=== PATIENT | male | born 1960 | race Caucasian/White ===

== ENCOUNTER 2022-11-14 00:27 | Day surgery (SDC) | payer OTHER, SELFPAY ==
[2022-11-03 11:30] VITALS: BMI 29.0
[2022-11-14 07:06] VITALS: BP 135/80; PULSE 63; RESP 20; TEMP 36.6; O2SAT 98; BMI 27.8
--- NOTE | 2022-11-14 07:29 | P.HP_ITS ---
History of Present Illness History of Present Illness Consent: Risks, benefits, and alternatives have been discussed and questions answered. Patient agrees to proceed with procedure. Chief complaint: neoplasm screening Narrative: Miguelangel Nuno Jr. is a 62 year old male Presents for screening colonoscopy. Patient's current weight appetite and bowel movements are normal. Patient denies abdominal pain. He has had no bleeding. Family history is noncontribut ory. Review of Systems Review of Systems: Review of systems noncontributory. [facility] Social History Social History Smoking status: Never smoker Alcohol intake: current Alcohol use details: 1-2 drinks monthly Substance use type: does not use Living arrangements: with family Spiritual care concerns: No Meds Home Medications and Allergies Home Medications Medication Instructions Recorded Confirmed Type ascorbic acid (vitamin C) 500 mg 500 mg PO DAILY 11/03/22 11/03/22 History capsule atorvastatin 20 mg tablet 20 mg PO DAILY 11/03/22 11/03/22 History loratadine 10 mg tablet (Claritin) 10 mg PO DAILY PRN Allergy Symptoms 11/03/22 11/03/22 History losartan 50 mg tablet 50 mg PO DAILY 11/03/22 11/03/22 History multivitamin with minerals-folic 1 tablet PO DAILY 11/03/22 11/03/22 History acid 0.4 mg tablet vitamin B complex 1 tablet PO DAILY 11/03/22 11/03/22 History Allergies Allergy/AdvReac Type Severity Reaction Status Date / Time No Known Allergies Allergy Verified 11/03/22 11:32 Vital Signs Vital Signs - 24 hr 11/14/22 07:06 Temperature 98 F Pulse Rate 63 Respiratory Rate 20 Blood Pressure 135/80 Pulse Oximetry 98 Oxygen Delivery Room Air Exam Narrative: Physical exam reveals patient to be alert. Vital signs stable. HEENT exam is unremarkable. Patient is anicteric. Lungs are clear to auscultation and percussion. Heart is without murmur or extra sounds. Abdomen bowel sounds are present soft nontender with no organomegaly. Digital external rectal exam is no rmal.
[2022-11-14] MEDS: LACTATED RINGERS 1,000 ML 150 ML IV CONT (07:30)
--- NOTE | 2022-11-14 08:09 | P.PNAN_ITS ---
Anes - Initial Pre Proc Eval Procedure: Operation Date: 11/14/22 08:30 Proposed Procedures p Screening Colonoscopy - Carlos Lerma MD Date/Time: 11/14/22 08:09 Surgeon: Carlos Lerma MD Pre Op Diagnosis: neoplasm screening Patient Data Age: 62 Gender: M Height: 1.7 m Weight: 80.6 kg Last Vital Signs Temp 98 F 11/14/22 07:06 Pulse 63 11/14/22 07:06 Resp 20 11/14/22 07:06 BP 135/80 11/14/22 07:06 Pulse Ox 98 11/14/22 07:06 O2 Del Method Room Air 11/14/22 07:06 Allergies Allergy/AdvReac Type Severity Reaction Status Date / Time No Known Allergies Allergy Verified 11/03/22 11:32 Home Medications Medication Instructions Recorded Confirmed Type ascorbic acid (vitamin C) 500 mg 500 mg PO DAILY 11/03/22 11/03/22 History capsule atorvastatin 20 mg tablet 20 mg PO DAILY 11/03/22 11/03/22 History loratadine 10 mg tablet (Claritin) 10 mg PO DAILY PRN Allergy Symptoms 11/03/22 11/03/22 History losartan 50 mg tablet 50 mg PO DAILY 11/03/22 11/03/22 History multivitamin with minerals-folic 1 tablet PO DAILY 11/03/22 11/03/22 History acid 0.4 mg tablet vitamin B complex 1 tablet PO DAILY 11/03/22 11/03/22 History Patient hx anesthesia problems: none Family hx anesthesia problems: none Results Review: All pre-operative results and documents have been reviewed as part of the pre- operative evaluation. [facility] Social History Social History Smoking status: Never smoker Alcohol intake: current Alcohol use details: 1-2 drinks monthly Substance use type: does not use Living arrangements: with family Spiritual care concerns: No Anes - Eval Final PreProcedure Day of Procedure 11/14/22 08:09 Patient weight: normal Heart: regular rate and rhythm Lungs: clear to auscultation Airway: Mallampati scale class II Neurological: alert and oriented Last oral intake: >/= 8 hours ASA classification: III Emergent: no Anesthetic plan: proceed Anesthesia type and monitoring: general GIVS and standard monitoring Results Review: All pre-operative results and documents have been reviewed as part of the pre- operative evaluation. Informed Consent: The patient's anesthetic plan and its attendant risks and benefits were discussed with the patient/family/POA. Questions were solicited and answers provided to the satisfaction of the patient/family/POA.
[2022-11-14 08:49] VITALS: BP 111/69; PULSE 61; RESP 12; O2SAT 96
[2022-11-14 08:59] VITALS: BP 108/70; PULSE 63; RESP 13; O2SAT 99
[2022-11-14 09:09] VITALS: BP 113/80; PULSE 68; RESP 16; O2SAT 100
== END 2022-11-14 09:17 | disposition home or self-care (01) ==
PROVIDERS: PCP Internal Medicine; Visit Provider Internal Medicine Gastroenterology
PROC: 0DJD8ZZ Inspection of Lower Intestinal Tract, Via Natural or Artificial Opening Endoscopic (ICD-10-PCS; CPT 45378; principal; 2022-11-14 08:30)
DX: Z12.11 Encounter for screening for malignant neoplasm of colon (principal); K64.8 Other hemorrhoids
CPT/HCPCS: 45378; J2704; J7120